=== PATIENT | female | born 1960 | race Caucasian/White ===

== ENCOUNTER 2023-04-11 15:27 | Emergency (ER) | payer OTHER ==
[2023-04-11] MEDS ORDERED: Sodium Chloride 0.9% 10 ML Syringe FLUSH PRN ×2 (15:29→15:36)
[2023-04-11] MEDS ORDERED: Iopamidol 612 MG/ML 100 ML Bottle IVPUSH ONE (15:36)
[2023-04-11] MEDS ORDERED: Sodium Chloride 0.9% 45 ML IV SCH (15:45)
[2023-04-11 16:16] LABS: A/G RATIO 1.1 (1-2); ALANINE AMINOTRANSFERASE,ALT 40 U/L (14-59); ALBUMIN 3.4 g/dl (3.4-5.0); ALKALINE PHOSPHATASE 60 U/L (46-116); ANION GAP 11.8 (5-15); ASPARTATE AMNIOTRANSFERASE,AST 31 U/L (15-37); BILIRUBIN TOTAL 0.4 mg/dL (0.2-1.0); BLOOD UREA NITROGEN,BUN 18 mg/dL (7-18); BUN/CREATININE RATIO 22.5 (14-18); CALCIUM 8.4 mg/dL (8.5-10.1); CARBON DIOXIDE,CO2 25 mEq/L (21-32); CHLORIDE,CL 108 mEq/L (98-107); CREATININE 0.8 mg/dL (0.55-1.02); ESTIMATED GFR 82 mL/min (>60); GLUCOSE RANDOM 91 mg/dL (70-99); LIPASE 141 U/L (73-393); POTASSIUM,K 3.8 mEq/L (3.5-5.1); PROTEIN TOTAL,TP 6.5 g/dl (6.4-8.2); SODIUM,NA 141 mEq/L (136-145)
[2023-04-11 16:17] LABS: BASOPHILS ABSOLUTE AUTO 0.03 K/mm3 (0.01-0.08); BASOPHILS PERCENT AUTO 0.2 % (0.1-1.2); EOSINOPHILS ABSOLUTE AUTO 0.04 K/mm3 (0.04-0.36); EOSINOPHILS PERCENT AUTO 0.3 (0.7-5.8); HEMATOCRIT 40.4 % (34.1-44.9); HEMOGLOBIN 13.5 gm/dl (11.2-15.7); IMMATURE GRAN ABSOLUTE AUTO 0.04 K/mm3 (0.00-0.10); IMMATURE GRAN PERCENT AUTO 0.3 % (<=1.0); LYMPHOCYTES ABSOLUTE AUTO 0.88 K/mm3 (1.18-3.74); LYMPHOCYTES PERCENT AUTO 6.8 % (19.3-51.7); MEAN CORPUSCULAR HEMOGLOBIN 30.8 pg (25.6-32.2); MEAN CORPUSCULAR HGB CONC 33.4 g/dl (32.2-35.5); MEAN PLATELET VOLUME 10.7 fl (9.4-12.3); MONOCYTES ABSOLUTE AUTO 0.76 K/mm3 (0.24-0.36); MONOCYTES PERCENT AUTO 5.9 % (4.7-12.5); NEUTROPHILS ABSOLUTE AUTO 11.11 K/mm3 (1.56-6.13); NEUTROPHILS PERCENT AUTO 86.5 % (34.0-71.1); PLATELET COUNT,PLT 201 K/mm3 (182-369); RED BLOOD CELL COUNT 4.39 M/mm3 (3.98-5.22); WHITE BLOOD CELL COUNT,WBC 12.86 K/mm3 (3.98-10.04)
[2023-04-11 17:19] LABS: APPEARANCE,URINE CLEAR (Clear); BILIRUBIN,URINE NEGATIVE (Negative); COLOR,URINE YELLOW (Yellow); GLUCOSE,URINE NEGATIVE (Negative); KETONES,URINE TRACE (Negative); LEUKOCYTE ESTERASE,URINE NEGATIVE (Negative); NITRITE,URINE NEGATIVE (Negative); OCCULT BLOOD,URINE NEGATIVE (Negative); PH,URINE 6.5 (5.0-8.0); PROTEIN,URINE NEGATIVE (Negative); UROBILINOGEN,URINE 0.2 (0.2-1.0)
[2023-04-11] MEDS ORDERED: HYDROmorphone 0.5 MG/0.5 ML Syringe IVPUSH ONE (17:29)
[2023-04-11 17:30] LABS: BACTERIA,URINE FEW /hpf (FEW); HYALINE CASTS,URINE 0-5 /lpf (0-5); MUCUS,URINE FEW /hpf (FEW); RBC,URINE 0-5 /hpf (0-5)
[2023-04-11] MEDS ORDERED: Aspirin 81 MG Tab.Chew PO ONE (18:40)
[2023-04-11] MEDS ORDERED: Acetaminophen/HYDROcodone 325-5 MG Tab PO PRN (22:52)
[2023-04-12] MEDS ORDERED: Acetaminophen/HYDROcodone 325-5 MG Tab PO ONE (07:42)
== END 2023-04-12 10:40 | disposition home or self-care (01) ==
LOC: JD.ED 15:27
DX: S22.42XA Multiple fractures of ribs, left side, initial encounter for closed fracture (principal); S92.145A Nondisplaced dome fracture of left talus, initial encounter for closed fracture; S72.011A Unspecified intracapsular fracture of right femur, initial encounter for closed fracture; V80.010A Animal-rider injured by fall from or being thrown from horse in noncollision accident, initial encounter
CPT/HCPCS: 36415; 71260; 73610; 74177; 80053; 81001; 83690; 85025; 96374; 99285; A9270; J1170; J3490; Q9967; 99284